=== PATIENT | male | born 1960 | race Two or more races ===

== ENCOUNTER 2019-03-07 12:43 | Emergency (ER) | payer BC ==
[~2019-03-07] VITALS: Ht 162.6 cm; Wt 69.4 kg
[2019-03-07] MEDS ORDERED: methylPREDNISolone SOD SUCC 125 MG/2 ML VL IM ONE (15:00)
[2019-03-07] MEDS ORDERED: cefTRIAXone SOD 1,000 MG VL IM ONE (15:00)
[2019-03-07 15:19] VITALS: BP 105/70
== END 2019-03-07 15:43 | disposition home or self-care (01) ==
LOC: ER 12:43
DX: J03.90 Acute tonsillitis, unspecified (principal); R19.7 Diarrhea, unspecified
CPT/HCPCS: 96372; 99283; J0696; J2930

== ENCOUNTER 2019-08-25 11:51 | Emergency (ER) | payer BC ==
[~2019-08-25] VITALS: Ht 165.1 cm; Wt 60.8 kg
[2019-08-25] MEDS ORDERED: HYDROmorphone HCL 2 MG/ML VL IM ONE (13:15)
[2019-08-25] MEDS ORDERED: ONDANSETRON HCL 4 MG/2 ML VIAL IM ONE (13:15)
[2019-08-25] MEDS ORDERED: ONDANSETRON HCL 4 MG/2 ML VIAL IV ONE (16:15)
[2019-08-25] MEDS ORDERED: HYDROmorphone HCL 2 MG/ML VL IV ONE (16:15)
[2019-08-25 16:47] VITALS: BP 116/74
== END 2019-08-25 16:50 | disposition home or self-care (01) ==
LOC: ER 11:51
DX: M54.41 Lumbago with sciatica, right side (principal); M25.551 Pain in right hip; Z85.830 Personal history of malignant neoplasm of bone
CPT/HCPCS: 72131; 73700; 96372; 96374; 96375; 99284; J1170; J2405

== ENCOUNTER → 2019-08-25 | Emergency (ER) | payer BC | END | disposition left against medical advice (07) | LOC: ER 20:25 | DX: M79.604 Pain in right leg (principal); Z53.21 Procedure and treatment not carried out due to patient leaving prior to being seen by health care provider ==

== ENCOUNTER 2019-08-29 16:48 | Emergency (ER) | payer BC ==
[~2019-08-29] VITALS: Ht 165.1 cm; Wt 61.2 kg
[2019-08-29 17:10] VITALS: BP 117/72
[2019-08-29] MEDS ORDERED: ONDANSETRON HCL 4 MG/2 ML VIAL IM ONE ×2 (22:00→22:15)
[2019-08-29] MEDS ORDERED: HYDROmorphone HCL 2 MG/ML VL IM ONE ×2 (22:00→22:15)
== END 2019-08-29 22:36 | disposition home or self-care (01) ==
LOC: ER 16:48
DX: M54.5 Low back pain (principal); R20.2 Paresthesia of skin
CPT/HCPCS: 96372; 99283; J1170; J2405